=== PATIENT | male | born 1985 | race Hispanic/Latino ===

== ENCOUNTER 2018-02-08 05:17 | Emergency (ER) | payer OTHER ==
[~2018-02-08] VITALS: Ht 188 cm; Wt 115.7 kg
--- NOTE | 2018-02-08 06:30 | RADIOLOGY REPORT ---
EXAMINATION: XR CHEST CLINICAL INFORMATION: Cough and fever COMPARISON: None TECHNIQUE: 2 views of the chest were obtained. FINDINGS: The lungs are well expanded. There is no focal consolidation, edema, or effusion. No pneumothorax. The cardiomediastinal silhouette is within normal limits. No acute osseous abnormality. IMPRESSION: No acute pulmonary finding.
[2018-02-08 06:33] LABS: ABSOLUTE BASOPHIL COUNT 0 /CUMM (0.0-0.2); ABSOLUTE EOSINOPHIL COUNT 0.2 /CUMM (0.0-0.7); ABSOLUTE GRANULOCYTE CT 4.4 /CUMM (1.4-6.5); ABSOLUTE LYMPH COUNT 1.3 /CUMM (1.2-3.4); ABSOLUTE MONOCYTE COUNT 0.3 /CUMM (0.10-0.60); BASOPHIL % 0.2 % (0.0-2.0); EOSINOPHIL % 3.1 % (0-5); GRANULOCYTE % 70.7 % (42.2-75.2); HEMATOCRIT 47.5 % (42-52); MEAN CORPUSCULAR HGB 27.5 PG (27.0-31.0); MEAN CORPUSCULAR HGB CONC 33.8 G/DL (33.0-37.0); MEAN CORPUSCULAR VOLUME 81.6 FL (80.0-94.0); MEAN PLATELET VOLUME 9.4 FL (7.4-10.4); PLATELET COUNT 188 /CUMM (130-400); RED BLOOD CELL CT 5.83 /CUMM (4.70-6.10); WHITE BLOOD CELL COUNT 6.3 /CUMM (4.8-10.8)
--- NOTE | 2018-02-08 07:17 | ED INFLUENZA/URI COMPLAINT ---
History of Present Illness General Chief Complaint: General Adult Stated Complaint: FEVER, LITTLE NAUSEA, GASSY PER PT Source: patient, family, old records Exam Limitations: no limitations Vital Signs & Intake/Output Vital Signs & Intake/Output Vital Signs Date Time Temp Pulse Resp B/P B/P Pulse O2 O2 Flow FiO2 Mean Ox Delivery Rate 02/08 1243 98.1 80 18 108/61 Room Air 02/08 1034 98.5 84 16 111/60 98 Room Air 02/08 0713 98.0 98 18 100/57 97 Room Air 02/08 0629 96 Room Air 02/08 0536 98.1 105 18 111/65 96 Room Air Allergies Coded Allergies: No Known Allergies (02/08/18) Reconcile Medications No Known Home Medications Triage Note: PT FROM HOME C/O SINCE MONDAY INTERMITTENT FEVERS, AND VELAZQUEZ. PT WAS SEEN AT PCP YESTERDAY WITH NO MEDICATIONS GIVEN. PT STATES HE HAS PAIN WHEN HE BREATHS IN UNDER BILATERAL RIB AREA. PT STATES HE LAST MEDICATED WITH MOTRIN 800MG AROUND 0500. PT STATES CHILLS AND DIAPHORETIC. Triage Nurses Notes Reviewed? yes Onset: Last week Duration: day(s):, continues in ED, getting worse Timing: recent history Severity: moderate, severe Prior Episodes/Possible Cause: illness exposure Modifying Factors: Improves With: medication. Associated Symptoms: cough, fever/chills, headache, muscle aches, nasal congestion, sinus infection HPI: 5 days prior to admission patient complains of nonproductive cough fever chills headache muscle aches nasal congestion abdominal distention with gas. He denies nausea vomiting diarrhea abdominal pain dysuria rash bleeding. (John Dacosta MD) Past History Travel History Traveled to [place] past 21 day No Medical History Any Pertinent Medical History? none Neurological: NONE EENT: NONE Cardiovascular: NONE Respiratory: NONE Gastrointestinal: NONE Hepatic: NONE Renal: NONE Musculoskeletal: NONE Psychiatric: NONE Endocrine: NONE Surgical History Surgical History: non-contributory Psychosocial History What is your primary language Amharic Tobacco Use: Current Daily Use Daily Tobacco Use Amount/Type: =< 4 Cigarettes daily ETOH Use: occasional use Illicit Drug Use: denies illicit drug use Family History Hx Contributory? No (John Dacosta MD) Review of Systems Review of Systems Constitutional: Reports: chills, fever, malaise. Denies: see HPI. EENTM: Reports: see HPI, nasal congestion. Respiratory: Reports: see HPI, cough. Denies: sputum production. Cardiovascular: Reports: no symptoms. GI: Reports: see HPI, bloating (With gas). Musculoskeletal: Reports: no symptoms. Skin: Reports: no symptoms. Neurological/Psychological: Reports: see HPI, headache. Hematologic/Endocrine: Reports: see HPI. Immunologic/Allergic: Reports: no symptoms. All Other Systems: Reviewed and Negative (John Dacosta MD) Physical Exam Physical Exam General Appearance: well developed/nourished, alert, awake, anxious, mild distress, obese Head: atraumatic, normal appearance Eyes: Bilateral: normal appearance, PERRL, EOMI. Ears, Nose, Throat: normal ENT inspection, moist mucous membrane, hearing grossly normal, Tympanic normal, nasal congestion Neck: normal inspection, supple, full range of motion, no midline tenderness Respiratory: normal breath sounds, chest non-tender, no respiratory distress, quiet respiration, lungs clear Cardiovascular: regular rate/rhythm, normal peripheral pulses, norml femoral pulses equa Peripheral Pulses: 4+ carotid (R), 4+ carotid (L) Gastrointestinal: normal bowel sounds, soft, non-tender, no organomegaly Back: normal inspection, normal range of motion, no vertebral tenderness Extremities: normal inspection, normal capillary refill, normal range of motion, no edema Neurologic/Psych: no motor/sensory deficits, awake, alert, oriented x 3, normal gait, normal mood/affect, 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 Skin: intact, normal color, warm/dry Lymphatic: adenopathy Core Measures Sepsis Present: No Sepsis Focused Exam Completed? No (John Dacosta MD) Progress Differential Diagnosis: influenza, otitis, pneumonia, sinusitis Plan of Care: Orders Procedure Date/time Status Add-on Test (ER Only) 02/08 075 Active HEPATITIS PANEL 02/08 627 Complete URINALYSIS 02/08 605 Complete MONOSPOT TEST 02/08 605 Complete COMPREHENSIVE METABOLIC PANEL 02/08 605 Complete CBC WITHOUT DIFFERENTIAL 02/08 605 Complete Laboratory Tests 02/08/18 0810: Urine Color YEL, Urine Clarity CLEAR, Urine pH 6.0, Ur Specific [place] <= 1.005 , Urine Protein NEG, Urine Ketones NEG, Urine Nitrite NEG, Urine Bilirubin NEG, Urine Urobilinogen 0.2, Ur Leukocyte Esterase NEG, Ur Microscopic EXAM NOT REQUIRED, Urine Hemoglobin NEG, Urine Glucose NEG 02/08/18 0627: Anion Gap 11, Estimated GFR > 60, BUN/Creatinine Ratio 14.0, Glucose 110 H, Calcium 9.5, Total Bilirubin 1.0, AST 82 H, ALT 185 H, Alkaline Phosphatase 163 H, Total Protein 8.4 H, Albumin 4.6, Globulin 3.8, Albumin/Globulin Ratio 1.2, CBC w Diff NO MAN DIFF REQ, RBC 5.83, MCV 81.6, MCH 27.5, MCHC 33.8, RDW 14.0, MPV 9.4, Gran % 70.7, Lymphocytes % 20.6, Monocytes % 5.4, Eosinophils % 3.1, Basophils % 0.2, Absolute Granulocytes 4.4, Absolute Lymphocytes 1.3, Absolute Monocytes 0.3, Absolute Eosinophils 0.2, Absolute Basophils 0, Hepatitis A IgM Ab NONREACTIVE, Hep Bs Antigen NONREACTIVE, Hep B Core IgM Ab Conf NONREACTIVE, Hepatitis C Antibody NONREACTIVE 02/08/18 0605: Infectious [place] Titer NEGATIVE Diagnostic Imaging: Viewed by Me: Radiology Read. Discussed w/RAD: Radiology Read. CXR Impression: no acute abnormality, no infiltrates Initial ED EKG: none Hand-Off Endorsed To: Branden Silva MD Endorsed Time: 0700 Pending: labs, other (clinical response) (John Dacosta MD) Radiology Impression: PATIENT: FELIX MCGEE PRESENT AGE: 32 PATIENT ACCOUNT NO: [id number] : 85 LOCATION: [facility] ORDERING PHYSICIAN: Branden Silva MD SERVICE DATE: 02/08/18 EXAM TYPE: CAT - CT ABD & PELVIS W IV CONTRAST EXAMINATION: CT ABDOMEN AND PELVIS WITH CONTRAST CLINICAL INFORMATION: URI symptoms. Elevated liver enzymes. Presumptive diagnosis of hepatitis, fatty liver, biliary disease. COMPARISON: None. TECHNIQUE: Multidetector CT volumetric acquisition of the abdomen and pelvis was performed after the administration of 95 mL of intravenous Optiray 320. The data set was reformatted in the sagittal and coronal planes and reviewed on an independent workstation. DLP: 831.37 mGy-cm. FINDINGS: LOWER CHEST: There is a 9 mm oval smoothly marginated nodule seen in the inferior most aspect of the lateral segment of the right middle lobe (series 2, image 9). When viewed on the sagittal reconstructed sequences (series 601, image 104 through 108, this finding is actually found to be in the subphrenic fat rather than in the right middle lobe and is consistent with a small epiphrenic lymph node. Remainder of the lung bases is unremarkable. LIVER, GALLBLADDER, BILIARY TREE: Liver is enlarged, measuring 21.9 cm longitudinally. Liver attenuation is normal. No focal cystic or solid mass or intra-or extrahepatic ductal dilatation. Hepatic and portal veins patent. Gallbladder well distended and within normal limits. PANCREAS: Normal. No ductal dilatation, mass, or surrounding stranding. SPLEEN: Mildly enlarged, measuring 13.3 cm longitudinally. Spleen otherwise normal in appearance. Splenic vein patent. ADRENAL GLANDS AND KIDNEYS: Adrenal glands normal. Kidneys bilaterally symmetric in size and function. No focal mass, hydronephrosis, nephrolithiasis or perinephric stranding. URETERS AND BLADDER: Ureters decompressed and within normal limits. Bladder partially distended and within normal limits. PELVIC ORGANS: Unremarkable. GASTROINTESTINAL TRACT: Mild sigmoid colonic diverticulosis. No acute diverticulitis. Small and large bowel loops decompressed an otherwise unremarkable. Appendix in right lower quadrant normal. ABDOMINAL WALL: Small fat-containing umbilical hernia and small bilateral fat-containing direct inguinal hernias are seen. LYMPHOVASCULAR STRUCTURES: Abdominal aorta normal in caliber. No periaortic collections. No abdominal or pelvic adenopathy or free fluid collection. BONES: Mild degenerative changes seen in the left sacroiliac joint. IMPRESSION: 1. Mild hepatosplenomegaly is seen. 2. No evidence of hepatic steatosis or focal hepatic mass. 3. Gallbladder and biliary tree unremarkable. 4. Incidental 9 mm right epiphrenic lymph node, doubtful clinical significance. 5. Mild sigmoid colonic diverticulosis. 6. Small fat-containing inguinal hernias and small fat- containing umbilical hernia. DICTATED BY: Kori Landaverde MD DATE/TIME DICTATED :02/08/18910 [employer] DIRECTOR:FREDO DATE/TIME TRANSCRIBED:02/08/18910 CONFIDENTIAL, DO NOT COPY WITHOUT APPROPRIATE AUTHORIZATION. 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 02/08/2018 8:05:10 AM I have updated surgery on his test results. He denies a history of diabetes or consistent alcohol use. He is relatively comfortable at this time and declined any additional medications. (Shira CALDWELL,Branden Robin) Departure Departure Condition: Stable Departure Forms: Customer Survey General Discharge Information Prescriptions: Current Visit Scripts No Known Home Medications (Praneeth CALDWELL,John) Departure Disposition: HOME OR SELF CARE Clinical Impression Primary Impression: Febrile illness Secondary Impressions: Transaminitis Referrals: Nicko Peter MD (PCP/Family) Additional Instructions: Ibuprofen 600 mg every 6 hours as needed for fever or discomfort, Levsin as needed for abdominal pain. Follow-up with your primary care physician or the GI specialist listed for reevaluation within the next 3-4 days. Return immediately if any concerns or sudden worsening. If you do not currently have a primary care physician then please contact the [facility] primary care practice at the following phone number: . Please note that there might be incidental findings in your evaluation that are unrelated to the current emergency department visit. Please notify your primary care doctor about this emergency department visit in order to obtain and review all of the testing performed so that these incidental findings can be monitored as needed. If you had an x-ray performed, please understand that some fractures or other findings may not be seen on the initial set of x-rays. If your symptoms persist you might need a repeat set of x-rays to check for such a fracture. If you had a laceration evaluated, please understand that foreign bodies such as glass or wood may not be visible to the naked eye or on plain x-rays. If the wound becomes red, swollen, increasingly more painful or if there is any drainage from the wound, please have it reevaluated by a physician for the possibility of a retained foreign body. If you're unable to follow up as outlined in the discharge instructions please return to the emergency department. Thank you for choosing the [facility] Emergency Department for your care. It was a pleasure to serve you today. Branden Silva M.D. [facility] (Shira CALDWELL,Branden Robin)
--- NOTE | 2018-02-08 09:29 | CT SCAN REPORT ---
EXAMINATION: CT ABDOMEN AND PELVIS WITH CONTRAST CLINICAL INFORMATION: URI symptoms. Elevated liver enzymes. Presumptive diagnosis of hepatitis, fatty liver, biliary disease. COMPARISON: None. TECHNIQUE: Multidetector CT volumetric acquisition of the abdomen and pelvis was performed after the administration of 95 mL of intravenous Optiray 320. The data set was reformatted in the sagittal and coronal planes and reviewed on an independent workstation. DLP: 831.37 mGy-cm. FINDINGS: LOWER CHEST: There is a 9 mm oval smoothly marginated nodule seen in the inferior most aspect of the lateral segment of the right middle lobe (series 2, image 9). When viewed on the sagittal reconstructed sequences (series 601, image 104 through 108, this finding is actually found to be in the subphrenic fat rather than in the right middle lobe and is consistent with a small epiphrenic lymph node. Remainder of the lung bases is unremarkable. LIVER, GALLBLADDER, BILIARY TREE: Liver is enlarged, measuring 21.9 cm longitudinally. Liver attenuation is normal. No focal cystic or solid mass or intra-or extrahepatic ductal dilatation. Hepatic and portal veins patent. Gallbladder well distended and within normal limits. PANCREAS: Normal. No ductal dilatation, mass, or surrounding stranding. SPLEEN: Mildly enlarged, measuring 13.3 cm longitudinally. Spleen otherwise normal in appearance. Splenic vein patent. ADRENAL GLANDS AND KIDNEYS: Adrenal glands normal. Kidneys bilaterally symmetric in size and function. No focal mass, hydronephrosis, nephrolithiasis or perinephric stranding. URETERS AND BLADDER: Ureters decompressed and within normal limits. Bladder partially distended and within normal limits. PELVIC ORGANS: Unremarkable. GASTROINTESTINAL TRACT: Mild sigmoid colonic diverticulosis. No acute diverticulitis. Small and large bowel loops decompressed an otherwise unremarkable. Appendix in right lower quadrant normal. ABDOMINAL WALL: Small fat-containing umbilical hernia and small bilateral fat-containing direct inguinal hernias are seen. LYMPHOVASCULAR STRUCTURES: Abdominal aorta normal in caliber. No periaortic collections. No abdominal or pelvic adenopathy or free fluid collection. BONES: Mild degenerative changes seen in the left sacroiliac joint. IMPRESSION: 1. Mild hepatosplenomegaly is seen. 2. No evidence of hepatic steatosis or focal hepatic mass. 3. Gallbladder and biliary tree unremarkable. 4. Incidental 9 mm right epiphrenic lymph node, doubtful clinical significance. 5. Mild sigmoid colonic diverticulosis. 6. Small fat-containing inguinal hernias and small fat-containing umbilical hernia.
[2018-02-08 12:43] VITALS: BP 108/61
[2018-02-08] MEDS ORDERED: LEVSIN0.125 M1 PO (13:41)
== END 2018-02-08 13:45 ==
LOC: ERH 05:17
PROVIDERS: Emergency Medicine
DX: R50.9 Fever, unspecified (principal); R74.0 Nonspecific elevation of levels of transaminase and lactic acid dehydrogenase [LDH]; R05 Cough; R51 Headache; R14.0 Abdominal distension (gaseous)
CPT/HCPCS: 71046; 74177; 81003; 96361; 96374; J0131